=== PATIENT | male | born 1980 | race Caucasian/White ===

== ENCOUNTER 2016-07-20 22:24 | Emergency (ER) | payer BC ==
[~2016-07-20] VITALS: Ht 182.9 cm; Wt 115.9 kg
[~2016-07-20 22:24] MED LIST: ADVIL200 MG PO; AMBIEN 10MG10 MG PO; BLOOD PRESSURE MED; CHANTIX1 MG PO; CITALOPRAM10 MG PO; CYMBALTA 60MG60 MG PO; DILAUDID 4MG TAB4 MG PO; EXCEDRIN1 TAB PO; FLEXERIL 1010 MG/TAB PO; HYGROTON25 MG; HYGROTON25 MG PO; IBUPROFEN800 MG PO; LORTAB 5/500 501 TAB PO; MOTRIN 800800 MG/TAB PO; NO HOME MEDICATIONS; NORCO 325 MG-51 TAB PO; NORCO 325 MG-7.1 TAB PO; NORGESIC FORTE1 TA1 PO; PERCOCET 325 MG1 TA2 PO; PERCOCET 325 MG1 TAB PO; PHENERGAN 25 TA25 MG PO; PRAVACHOL10 MG PO; PREDNISONE20 MG PO; PRILOSEC 20MG20 MG PO; PRILOTC PO; PRINIVIL10 MG; ROBAXIN 75750 MG/TAB PO; TENEX PO; TOPROL XL 25MG25 MG PO; TOPROL XL 50MG50 MG PO; VALIUM 5MG T5 MG/TAB PO; ZESTRIL 20MG TA20 MG PO
[2016-07-20 22:26] VITALS: TEMP 98.2
[2016-07-20 23:00] LABS: PH 6 (5-8); SQUAMOUS EPITHELIAL None Seen /hpf; URINE APPEARANCE Clear; URINE BACTERIA None Seen /hpf; URINE BILIRUBIN Negative (NEGATIVE); URINE BLOOD Negative (NEGATIVE); URINE COLOR Straw; URINE GLUCOSE Negative (NEGATIVE); URINE KETONE Negative (NEGATIVE); URINE RBC None Seen /hpf; URINE UROBILINOGEN Negative (NEGATIVE); URINE WBC 0-2 /hpf
[2016-07-20 23:05] LABS: BASO # 0.1 (0.0-0.2); BASO % 0.6 % (0.0-2.0); EOS # 0.2 (0.0-0.7); EOS % 1.9 % (0-4.0); GRAN # 5.5 (1.4-6.5); GRAN % 51.1 % (42.2-75.2); HEMATOCRIT 42.9 % (42.0-52.0); HEMOGLOBIN 15.5 g/dl (13.5-18.0); LYMPH % 36.7 % (20.0-51.0); MEAN CELL VOLUME 88 fl (80.0-100.0); MEAN CORPUSCULAR HEMOGLOBIN 32 pg (27.0-31.0); MEAN CORPUSCULAR HGB CONC 36 g/dl (33.0-37.0); MEAN PLATELET VOLUME 11.2 fl (7.4-10.4); MONO % 8.8 % (1.7-9.3); PLATELET COUNT 230 K/mm3 (130-400); RED BLOOD COUNT 4.87 M/mm3 (4.20-5.60); REDCELL DISTRIBUTION WIDTH-CV 12.1 % (11.5-14.5); WHITE BLOOD COUNT 10.8 K/mm3 (4.8-10.8)
[2016-07-20 23:06] LABS: ADJUSTED CALCIUM 8.7 mg/dL (8.4-10.2); ALBUMIN 4.5 gm/dL (3.5-5.0); BILIRUBIN,TOTAL 0.6 mg/dL (0.0-1.0); CALCIUM 9.1 mg/dL (8.4-10.2); CREATININE, serum 1.11 mg/dL (0.66-1.25); POTASSIUM 3.8 mmol/L (3.4-5.0); TOTAL PROTEIN 7.2 gm/dL (6.4-8.2)
[2016-07-20 23:40] VITALS: BP 144/90; PULSE 91
== END 2016-07-20 23:40 | disposition home or self-care (01) ==
LOC: COL.ER 22:24
PROVIDERS: Emergency Medicine
DX: R10.84 Generalized abdominal pain (principal); G89.29 Other chronic pain; M54.5 Low back pain; Z87.442 Personal history of urinary calculi
CPT/HCPCS: J2765; J3010; J7030

== ENCOUNTER → 2016-07-29 | Outpatient (CLI) | payer BC | LOC: MHCPAIN 08:50 | DX: G89.29 Other chronic pain (principal); M47.817 Spondylosis without myelopathy or radiculopathy, lumbosacral region; M54.16 Radiculopathy, lumbar region; M96.1 Postlaminectomy syndrome, not elsewhere classified | CPT/HCPCS: G0463 ==

== ENCOUNTER 2018-12-04 18:53 | Emergency (ER) | payer BC ==
[~2018-12-04] VITALS: Ht 182.9 cm; Wt 122.7 kg
[2018-12-04 19:01] VITALS: BP 139/90; TEMP 98.7
[2018-12-04 20:16] VITALS: PULSE 73
== END 2018-12-04 20:17 | disposition home or self-care (01) ==
LOC: COL.ER 18:53
DX: S01.01XA Laceration without foreign body of scalp, initial encounter (principal); F32.9 Major depressive disorder, single episode, unspecified; I10 Essential (primary) hypertension; F17.210 Nicotine dependence, cigarettes, uncomplicated; Y92.009 Unspecified place in unspecified non-institutional (private) residence as the place of occurrence of the external cause

== ENCOUNTER → 2018-12-12 | Outpatient (CLI) | payer BC ==
[2018-12-12 08:10] VITALS: BP 130/78; PULSE 82; TEMP 97.9
== END ==
LOC: COL.ER 07:50
DX: S01.91XD Laceration without foreign body of unspecified part of head, subsequent encounter (principal); X58.XXXD Exposure to other specified factors, subsequent encounter